=== PATIENT | male | born 1965 | race Caucasian/White ===

== ENCOUNTER 2016-05-07 21:38 | Emergency (ER) | payer OTHER ==
[~2016-05-07] VITALS: Ht 170.2 cm; Wt 103.4 kg
--- NOTE | ~2016-05-07 | EKG ---
[facility] [place] [address] ELECTROCARDIOGRAM REPORT Name: VENTURAEMILIANO M Room #: [facility]#: [id number] Admission: 05/07/16 Attend Phys: Discharge: 05/07/16 Date of : 65 Report #: [id number] THIS REPORT FOR: //name// [facility] ED Test Date: 2016-05-07 Test Time: 21:42:41 Pat Name: EMILIANO WHITEHEAD Department: Room: Gender: [employer] Manager: DEMIAN : 1965 Requested By: Artie Chahal Order Number: [id number] MD: Kali Jain Measurements Intervals [place] Rate: 94 P: -3 OK: 130 QRS: 58 QRSD: 82 T: 55 QT: 324 QTc: 406 Interpretive Statements Sinus rhythm Probable anteroseptal infarct, old Baseline wander in lead(s) V6 No previous ECG available for comparison Electronically Signed On 05-08-2016 7:41:47 [employer] by Kali Jain [email or web address] <ELECTRONICALLY SIGNED> By: Kali Jain MD, [facility] 05/08/16 [id number] Kali Jain MD, FACC /EPI
[~2016-05-07 21:38] MED LIST: ADVAIR HFA115 MCG/21; AMBIEN; AMBIEN 10 MG TA10 MG PO; AUGMENTIN 875875 MG PO; BACLOFEN; CARAFATE 1 GM TA1 G1 PO; CIPROFLOXACIN500 M1 PO; CO Q-10100 MG PO; COLACE1 EAC1 RC; COLACE100 MG PO; FISH OIL 1,001000 M2 PO; FISHOIL; FLAGYL500 M1 PO; FLAGYL500 MG PO; FOLIC ACID; GABAPENTIN 100100 MG PO; GLUCOSAMINE &1 EAC1 PO; GLUCOSAMINE-CH1 EA37 PO; IRON PO; LISINOPRIL10 MG PO; MAGOX 400400 MG PO; MEN'S 50+ ADVA1 EACH; NIACIN500 MG PO; NICOTINE TRANSD21 M1 TRANSDERM; NORCO 5-325 TA1 EACH PO; ONE DAILY FOR1 EACH PO; PEPCID40 MG PO; PERCOCET PO; PHENERGAN 25 MG25 M1 PO; POTASSIUM GLUCO99 M2 PO; POTASSIUM20 PO; PROBIOTIC; PROZAC10 MG PO; SYMBICORT160 MCG/4.; TRAZODONE HCL50 MG PO; VENTOLIN HFA 1818 GM INH; VICODIN ES 7.51 EACH PO; VITAMINC500 PO; WELLBUTRIN SR150 MG PO; ZANTAC 150MG T150 M1 PO; ZOCOR; ZOCOR40 MG PO; ZYPREXA; ZYPREXA 10 MG T10 MG PO; ZYPREXA7.5 MG PO
[2016-05-07 22:20] LABS: HEMATOCRIT 46.2 % (42.0-52.0); HEMOGLOBIN 15.5 gm/dL (14.0-18.0); MANUAL DIFF YES; MCHC 33.6 % (28.0-37.0); MCV 89.5 fL (80.0-100.0); PLATELET COUNT 284 thou/uL (150-400); RBC 5.16 mil/uL (4.50-6.00); RDW 14.2 % (10.5-14.5); WBC 19.5 thou/uL (4.0-11.0)
[2016-05-07 22:29] LABS: ANION GAP 8 mmol/L (7-16); BUN 22 mg/dL (7-18); CALCIUM 8.4 mg/dL (8.5-10.1); CHLORIDE 99 mmol/L (98-107); CO2 28 mmol/L (21-32); GLUCOSE 97 mg/dL (70-99); POTASSIUM 3.9 mmol/L (3.5-5.1); SODIUM 135 mmol/L (136-145)
[2016-05-07 22:34] LABS: APTT 26.1 Seconds (24.5-32.8); PROTIME 10.2 Seconds (9.3-11.4)
[2016-05-07 22:44] LABS: ABSOLUTE NEUTROPHILS 14.4 thou/uL (1.4-8.2); ANISOCYTOSIS 1+; POLYCHROMASIA OCCASIONAL; TOTAL CELL COUNT 100
[2016-05-07 22:46] LABS: ALBUMIN 3.5 g/dL (3.4-5.0); ALKALINE PHOSPHATASE 66 U/L (46-116); CK-MB MASS 3.7 ng/mL (<0.5-3.6); MAGNESIUM 2.2 mg/dL (1.8-2.4); NT-PRO BRAIN NAT PEPTIDE 28 pg/mL (<300); SGOT 18 U/L (15-37); SGPT 25 U/L (30-65); TOTAL BILIRUBIN 0.4 mg/dL (<0.1-1.0); TOTAL PROTEIN 6.5 g/dL (6.4-8.2); TROPONIN-I < 0.04 ng/mL (<0.04-0.07)
[2016-05-07] MEDS ORDERED: NITROGLYCERIN0.4 MG SUBLING (23:18)
== END 2016-05-07 23:32 | disposition left against medical advice (07) ==
LOC: ER 21:38
PROVIDERS: Emergency Medicine
DX: R07.9 Chest pain, unspecified (principal); F17.210 Nicotine dependence, cigarettes, uncomplicated; D72.829 Elevated white blood cell count, unspecified; Z90.89 Acquired absence of other organs

== ENCOUNTER → 2017-12-06 | Outpatient (CLI) | payer OTHER ==
[~2017-12-06] MED LIST changes: +NAPROSYN500 MG PO; +NITROGLYCERIN0.4 MG SUBLING
== END ==
LOC: RAD 08:46
DX: R06.00 Dyspnea, unspecified (principal)

== ENCOUNTER 2018-07-17 19:44 | Emergency (ER) | payer OTHER ==
[~2018-07-17] VITALS: Ht 170.2 cm; Wt 102.1 kg
[2018-07-17] MEDS ORDERED: MOBIC15 MG PO (21:33)
[2018-07-17 21:37] VITALS: BP 129/73
== END 2018-07-17 21:40 | disposition home or self-care (01) ==
LOC: ER 19:44
DX: S63.681A Other sprain of right thumb, initial encounter (principal); F17.210 Nicotine dependence, cigarettes, uncomplicated; Z98.890 Other specified postprocedural states; W23.1XXA Caught, crushed, jammed, or pinched between stationary objects, initial encounter; Y92.89 Other specified places as the place of occurrence of the external cause; Y93.89 Activity, other specified; Y99.8 Other external cause status

== ENCOUNTER → 2021-01-29 | Outpatient (CLI) | payer OTHER ==
[~2021-01-29] MED LIST changes: +MOBIC15 MG PO
== END | disposition home or self-care (01) ==
LOC: RAD 09:19
PROVIDERS: ATTEND Internal Medicine
DX: J45.40 Moderate persistent asthma, uncomplicated (principal); M19.012 Primary osteoarthritis, left shoulder